=== PATIENT | female | born 1935 | race Caucasian/White ===

== ENCOUNTER → 2019-12-10 10:53 | Outpatient (BNVA) | payer MEDICARE, OTHER, SELFPAY | PROVIDERS: Family Provider Nurse Practitioner Family; PCP Nurse Practitioner Family; Visit Provider Specialist | DX: G31.84 Mild cognitive impairment of uncertain or unknown etiology (principal); F41.8 Other specified anxiety disorders; F42.9 Obsessive-compulsive disorder, unspecified; R25.1 Tremor, unspecified | CPT/HCPCS: 96116; 99214 ==

== ENCOUNTER → 2020-04-01 13:22 | Outpatient (BNVA) | payer MEDICARE, OTHER, SELFPAY | PROVIDERS: Family Provider Nurse Practitioner Family; PCP Nurse Practitioner Family; Visit Provider Nurse Practitioner | DX: E53.8 Deficiency of other specified B group vitamins (principal); E78.2 Mixed hyperlipidemia; I10 Essential (primary) hypertension | CPT/HCPCS: 80053; 80061; 82607; 84443; 85025 ==

== ENCOUNTER → 2020-05-19 14:18 | Outpatient (BNVA) | payer MEDICARE, OTHER, SELFPAY | PROVIDERS: Family Provider Nurse Practitioner Family; PCP Nurse Practitioner Family; Visit Provider Specialist | DX: G30.9 Alzheimer's disease, unspecified (principal); F02.80 Dementia in other diseases classified elsewhere, unspecified severity, without behavioral disturbance, psychotic disturbance, mood disturbance, and anxiety; G25.0 Essential tremor | CPT/HCPCS: 99213 ==

== ENCOUNTER 2020-06-18 14:10 | Outpatient (CLI) | payer MEDICARE, OTHER, SELFPAY ==
--- NOTE | 2020-06-18 14:23 | MM_ITS ---
WS: [id number] BILATERAL DIGITAL SCREENING MAMMOGRAPHY WITH CAD CLINICAL INFORMATION: SCREENING HISTORY: Screening mammogram. No current complaints. COMPARISON: TECHNIQUE: Bilateral CC and MLO views. FINDINGS: The breasts are composed of heterogeneous fibroglandular density tissue, which can limit the detectio n of small underlying mass lesions. Partially obscured isodense lesion mid depth left breast best see n on the cc view more prominent compared to the prior examinations. This measures 10 mm and recommend spot compression views and ultrasound if persistent. Right breast is unchanged. Dystrophic calcifications. Involuted calcified fibroadenoma. Vascular calcification. MM/[place] [id number] IMPRESSION: BI-RADS: 0-Incomplete: Need additional imaging evaluation FOLLOW UP: Need Additional Imaging
== END 2020-06-18 14:11 | disposition home or self-care (01) ==
LOC: RADSHAW 14:23
PROVIDERS: PCP Nurse Practitioner Family; Visit Provider Nurse Practitioner
DX: Z12.31 Encounter for screening mammogram for malignant neoplasm of breast (principal); R92.1 Mammographic calcification found on diagnostic imaging of breast; D24.9 Benign neoplasm of unspecified breast
CPT/HCPCS: 77067

== ENCOUNTER 2020-07-21 09:33 | Outpatient (CLI) | payer MEDICARE, OTHER, SELFPAY ==
--- NOTE | 2020-07-21 09:41 | US_ITS ---
WS: [id number] LEFT DIGITAL MAMMOGRAPHY WITH CAD CLINICAL INFORMATION: abnormal finding left breast COMPARISON: June 18, 2020 TECHNIQUE: 3 views of the left breast were obtained. FINDINGS: Scattered fibroglandular densities of the left breast. Again seen is the 10 mm asymmetric density mid left breast. Ultrasound is pending. Vascular calcification. Dystrophic calcification. ULTRASOUND BREAST LEFT TECHNIQUE: Ultrasound left breast focused area of concern. CLINICAL INFORMATION: abnormal finding left breast COMPARISON: None. FINDINGS: Ultrasound left breast at the 11:00 position 2 cm from the nipple. At the 11:00 position is a solid hypoechoic taller than wide lesion with a suspicious appearance caryn uring 4.7 x 7.3 x 4.4 mm. Recommend further evaluation with ultrasound-guided biopsy. Densely shadowing lesion at the 10:00 position 5 cm from the nipple appears to be partially calcified measuring 5.2 x 3.1 x 6.2 mm. This likely represents involuting fibroadenoma seen on the mammogram. Additional smaller hypoechoic lesions at the 11:00 position 3 cm from nipple likely represent small c ysts and/or dilated ducts. US/US breast LT limited* [id number] IMPRESSION: BI-RADS: 4-Suspicious Finding-Biopsy Should Be Considered FOLLOW UP: US Guided Biopsy Recommended ULTRASOUND GUIDED BIOPSY RECOMMENDED OF THE 11:00 LESION DESCRIBED ABOVE.
== END 2020-07-21 09:34 | disposition home or self-care (01) ==
LOC: RADSHAW 09:37
PROVIDERS: PCP Nurse Practitioner Family; Visit Provider Nurse Practitioner
DX: R92.8 Other abnormal and inconclusive findings on diagnostic imaging of breast (principal); N64.89 Other specified disorders of breast
CPT/HCPCS: 76642; 77065

== ENCOUNTER → 2020-07-23 10:14 | Outpatient (BNVA) | payer MEDICARE, OTHER, SELFPAY | PROVIDERS: PCP Nurse Practitioner Family; Visit Provider Nurse Practitioner Family | DX: I10 Essential (primary) hypertension (principal); R92.8 Other abnormal and inconclusive findings on diagnostic imaging of breast; L70.0 Acne vulgaris; E78.2 Mixed hyperlipidemia; R19.7 Diarrhea, unspecified; G30.9 Alzheimer's disease, unspecified; G31.84 Mild cognitive impairment of uncertain or unknown etiology; E53.8 Deficiency of other specified B group vitamins; N63.20 Unspecified lump in the left breast, unspecified quadrant | CPT/HCPCS: 80053; 80061; 82607; 84443; 85025 ==

== ENCOUNTER 2020-07-24 07:02 | Outpatient (CLI) | payer MEDICARE, OTHER, SELFPAY ==
--- NOTE | 2020-07-24 08:00 | US_ITS ---
WS: [id number] ULTRASOUND-GUIDED LEFT BREAST BIOPSY HISTORY: breast lesion on mammography COMPARISON: 07/21/2020 and 06/18/2020 Procedure, risks and complications are explained to the patient. Medications are reviewed. Consent is obtained. The mass in the LEFT breast is localized with ultrasound. Mass is localized at 11:00, 2 cm from the n ipple. Skin is cleansed with ChloraPrep and anesthetized with 1% buffered lidocaine. Small dermatome is made. Under sterile conditions mass is biopsied with a 14-gauge Achieve needle. Multiple core biop sies are performed. Material placed in formalin and sent to pathology for review. No complications en countered. Breast tissue marker (Bard ultrasound enhanced ribbon): Single. Patient left the radiology suite with no complications. Patient is instructed to return to [facility] or [facility] with any concerns. US/[id number] IMPRESSION: 1. Uncomplicated core needle biopsy LEFT breast biopsy, 11:00, 2 cm from the n ipple. PATHOLOGY: Benign fibroadipose tissue with stromal sclerosis and focal chronic inflammation. No malignancy. RECOMMENDATION: Return to annual screening mammography.
== END 2020-07-24 07:03 | disposition home or self-care (01) ==
PROVIDERS: PCP Nurse Practitioner Family; Visit Provider Nurse Practitioner Family
DX: R92.8 Other abnormal and inconclusive findings on diagnostic imaging of breast (principal); N64.89 Other specified disorders of breast
CPT/HCPCS: 19083; 88305

== ENCOUNTER → 2021-04-28 10:18 | Outpatient (BNVA) | payer MEDICARE, OTHER, SELFPAY | PROVIDERS: PCP Nurse Practitioner Family; Visit Provider Nurse Practitioner | DX: I10 Essential (primary) hypertension (principal); E55.9 Vitamin D deficiency, unspecified; Z78.0 Asymptomatic menopausal state; Z74.09 Other reduced mobility; G60.8 Other hereditary and idiopathic neuropathies; E78.2 Mixed hyperlipidemia; G31.84 Mild cognitive impairment of uncertain or unknown etiology; G25.0 Essential tremor | CPT/HCPCS: 80053; 80061; 82306; 82607; 84443; 85025 ==

== ENCOUNTER → 2021-05-18 12:38 | Outpatient (BNVA) | payer MEDICARE, OTHER, SELFPAY | PROVIDERS: PCP Nurse Practitioner Family; Visit Provider Specialist | DX: G30.9 Alzheimer's disease, unspecified (principal); F02.80 Dementia in other diseases classified elsewhere, unspecified severity, without behavioral disturbance, psychotic disturbance, mood disturbance, and anxiety; G25.0 Essential tremor | CPT/HCPCS: 99213 ==

== ENCOUNTER → 2021-09-01 15:41 | Outpatient (BNVA) | payer MEDICARE, SELFPAY | PROVIDERS: PCP Nurse Practitioner Family; Visit Provider Nurse Practitioner | DX: G31.84 Mild cognitive impairment of uncertain or unknown etiology (principal); I10 Essential (primary) hypertension; E55.9 Vitamin D deficiency, unspecified | CPT/HCPCS: 80053; 80061; 82306; 82607; 84443; 85025 ==

== ENCOUNTER → 2021-09-03 09:48 | Outpatient (BNVA) | payer MEDICARE, SELFPAY | PROVIDERS: PCP Nurse Practitioner Family; Visit Provider Nurse Practitioner | DX: R73.9 Hyperglycemia, unspecified (principal) | CPT/HCPCS: 83036 ==

== ENCOUNTER → 2022-02-18 14:56 | Outpatient (BNVA) | payer MEDICARE, SELFPAY | PROVIDERS: PCP Nurse Practitioner Family; Visit Provider Nurse Practitioner | DX: R73.9 Hyperglycemia, unspecified (principal); E78.2 Mixed hyperlipidemia; I10 Essential (primary) hypertension; R39.11 Hesitancy of micturition; G25.0 Essential tremor; G60.8 Other hereditary and idiopathic neuropathies | CPT/HCPCS: 80053; 80061; 83036 ==

== ENCOUNTER → 2022-05-17 13:16 | Outpatient (BNVA) | payer MEDICARE, OTHER, SELFPAY | PROVIDERS: PCP Nurse Practitioner Family; Visit Provider Specialist | DX: G30.9 Alzheimer's disease, unspecified (principal); F02.80 Dementia in other diseases classified elsewhere, unspecified severity, without behavioral disturbance, psychotic disturbance, mood disturbance, and anxiety; G25.0 Essential tremor | CPT/HCPCS: 99213; 99214 ==

== ENCOUNTER → 2022-06-01 08:53 | Outpatient (BNVA) | payer MEDICARE, OTHER, SELFPAY | PROVIDERS: PCP Nurse Practitioner Family; Visit Provider Nurse Practitioner | DX: E11.65 Type 2 diabetes mellitus with hyperglycemia (principal) | CPT/HCPCS: 80053; 83036 ==

== ENCOUNTER 2022-09-05 17:46 | Emergency (ER) | payer MEDICARE, OTHER, SELFPAY ==
[2022-09-05 17:54] VITALS: BP 183/67; PULSE 62; O2SAT 96; BMI 28.3
--- NOTE | 2022-09-05 18:02 | XRR_ITS ---
PROCEDURE INFORMATION: Exam: XR Right Hip Exam date and time: 09/05/2022 6:16 PM Age: 87 years old Clinical indication: Injury or trauma; Fall; Blunt trauma (contusions or hematomas); Right; Hip TECHNIQUE: Imaging protocol: Radiologic exam of the Right hip. Views: 1 view hip with pelvis when performed. COMPARISON: No relevant prior studies available. FINDINGS: Bones/joints: There are small marginal osteophytes across the right hip joint. Mild narrowing of the right hip joint space. Soft tissues: Unremarkable. XR/XR hip RT 2-3V wo/w pel* [id number] IMPRESSION: No evidence for acute fracture. There are degenerative changes across the right hip joint.
--- NOTE | 2022-09-05 18:05 | ED_ITS ---
HPI - Fall General: Chief Complaint: Fall Stated Complaint: fall/ back pain Time Seen by Provider: 09/05/22 18:02 Source: patient and EMS Mode of arrival: EMS Limitations: no limitations History of Present Illness: 87-year-old female states that she got up out of bed and tripped and fell landed on her right side. States she has right hip pain she rates a 2 out of 10 currently states she is able to move her legs has no obvious deformity she has not tried to ambulate again. She denies hitting her head or any other injuries. Associated symptoms-after fall: Denies abdominal pain, chest pain or headache(s) Review of Systems Const: Denies: fever(s), chills, body aches or change in appetite Eyes: Denies: blurry vision or eye discomfort ENMT: Denies: throat pain or dental pain Card: Denies: chest pain Resp: Denies: dyspnea GI: Denies: abdominal pain, nausea, vomiting or diarrhea : Denies: dysuria Musc: Reports: extremity pain Skin/Breast: Denies: rash Neuro: Denies: headache(s) Psych: Denies: depression Josué/Lymph: Denies: easy bruising All/Imm: Denies: urticaria PFSH ED PFSH: Medical History Essential hypertension Mixed hyperlipidemia Other specified idiopathic peripheral neuropathy Urinary hesitancy Surgical History H/O breast biopsy H/O colonoscopy yrs ago Family History Father CAD (coronary artery disease) Sister Cancer colon Brother Cancer lung Denies family history of Anesthesia complication Bleeding disorder Social History Smoking and tobacco status: never smoked Second hand smoke exposure: No Smoking risk assessment/counseling performed?: No Alcohol intake: never Desire information about alcohol rehabilitation?: No Counseling given: No Desire information about substance/drug rehabilitation?: No Counseling given: No Adopted: No Caregiver/support person: No Lives independently: Yes Household members: spouse and children Housing: House Marital status: service: No Current occupational status: retired History of recent travel: No Current gender identity: Female Physical Exam Const: COMMON NORMALS: no acute distress, patient oriented x3 and healthy appearing HENMT: COMMON NORMALS: normocephalic and atraumatic HEAD & SCALP: n ormocephalic and atraumatic Eye: COMMON NORMALS: Equal, round and reactive pupils present and EOMs intact bilaterally PUPIL: Yes Equal, round and reactive pupils present Neck/C-Spine: COMMON NORMALS: full ROM and supple Chest: COMMONS NORMALS: normal inspection of the chest and normal palpation of entire chest wall Resp: COMMON NORMALS: normal respiratory effort, No retractions, No use of accessory muscles and clear to auscultation bilaterally AUSCULTATION: clear to auscultation bilaterally Cardio: COMMON NORMALS: regular rate, regular rhythm and No murmurs present (Cardio) RATE: regular rate RHYTHM: regular rhythm GI: COMMON NORMALS: Normal to inspection, nondistended, normoactive bowel sounds present, Soft to palpation, non-tender and no masses PALPATION: Yes Soft to palpation Extremity: NARRATIVE EXTREMITY EXAM: tenderness over right hip no obvious deformity. full rom with minimal pain Neuro: COMMON NORMALS: patient oriented x3, moves all extremities and no focal motor deficits Psych: COMMON NORMALS: mental status grossly normal, Normal thought process present and cooperative THOUGHT PROCESS: Normal thought process present Skin: COMMON NORMALS: no rashes or lesions noted and no wounds GENERAL SKIN EXAM: no rashes or lesions noted Course Vital Signs: Vital signs: Vital Signs Pulse Rate 62 09/05/22 17:54 Blood Pressure 183/67 09/05/22 17:54 Pulse Oximetry 96 09/05/22 17:54 MDM - Fall Medical Decision Making Patient presents here with hip pain likely contusion from a fall she is able ambulate the halls with no pain and feels much improved x-ray showed no fracture she had no head injury or any other injuries from the fall. She is stable for discharge she is to follow-up with her PCP in 2 to 4 days return if worsening she understands agrees to plan. Lab Data Radiology Impressions Hip/Pelvis X-Ray 09/05/22 18:02 IMPRESSION: No evidence for acute fracture. There are degenerative changes across the right hip joint. Discharge Plan Discharge Patient Disposition: Home Clinical Impression: Fall, Contusion of right hip Condition: Stable Prescriptions: New Naprosyn 500 mg tablet 500 mg PO BID PRN (Reason: pain) Qty: 20 0RF No Action naproxen 500 mg tablet 500 mg PO BID ipratropium bromide 21 mcg (0.03 %) spray,non-aerosol 2 spray intranasal BID Rx Instructions: administer into each nostril donepezil 10 mg tablet 10 mg PO DAILY Qty: 90 2RF memantine 10 mg tablet See Rx Instructions .ROUTE .COMPLEX Qty: 180 3RF Dose Instruction: TAKE 1 TABLET TWICE A DAY Rx Instructions: TAKE 1 TABLET TWICE A DAY primidone 50 mg tablet See Rx Instructions .ROUTE .COMPLEX Qty: 360 3RF Dose Instruction: TAKE 2 TABLETS TWICE A DAY Rx Instructions: TAKE 2 TABLETS TWICE A DAY propranolol 80 mg capsule,extended release 24 hr 80 mg PO QDAY Qty: 90 3RF pregabalin [Lyrica] 100 mg capsule 100 mg PO BID Qty: 180 1RF mecobalamin (vitamin B12) 5,000 mcg tablet,disintegrating 5,000 mcg PO DAILY Qty: 90 1RF metformin 500 mg tablet extended release 24 hr 1,000 mg PO DAILY Qty: 180 0RF atorvastatin 40 mg tablet 40 mg PO QDAY Qty: 90 1RF buspirone 10 mg tablet See Rx Instructions .ROUTE .COMPLEX Qty: 90 5RF Dose Instruction: TAKE ONE TABLET BY MOUTH THREE TIMES DAILY Rx Instructions: TAKE ONE TABLET BY MOUTH THREE TIMES DAILY tamsulosin [Flomax] 0.4 mg capsule 0.4 mg PO .at bedtime Qty: 90 0RF lisinopril 20 mg tablet 20 mg PO QDAY Qty: 90 0RF duloxetine 60 mg capsule,delayed release(DR/EC) 60 mg PO BID Qty: 180 0RF Discharge Orders: Discharge ED (Routine); Ordered 09/05/22 Ordered By: Hernan Roy Referrals: Zohreh Preston FNP-C [Primary Care Provider] - Discharge Diet: Advance as tolerated Discharge Activity: Resume usual activity Patient Instructions: Hip Contusion (ED) Coding Level of Care Code ED Manager Of Maintenance for Celina Fwpauly Exam Comprehensive
[2022-09-05] MEDS: HYDROcodone-acetaminophen 5-325 mg Tablet 1 TAB PO (18:19)
[2022-09-05 19:43] VITALS: BP 198/93; PULSE 60; RESP 16; O2SAT 94
== END 2022-09-05 19:44 | disposition home or self-care (01) ==
PROVIDERS: Emergency Provider Emergency Medicine; PCP Nurse Practitioner Family
DX: S70.01XA Contusion of right hip, initial encounter (principal); Z79.84 Long term (current) use of oral hypoglycemic drugs; I10 Essential (primary) hypertension; E78.2 Mixed hyperlipidemia; W01.0XXA Fall on same level from slipping, tripping and stumbling without subsequent striking against object, initial encounter
CPT/HCPCS: 73502; 99283

== ENCOUNTER → 2022-10-20 09:55 | Outpatient (BNVA) | payer MEDICARE, OTHER, SELFPAY | PROVIDERS: PCP Nurse Practitioner Family; Visit Provider Nurse Practitioner | DX: E11.65 Type 2 diabetes mellitus with hyperglycemia (principal); E55.9 Vitamin D deficiency, unspecified | CPT/HCPCS: 80053; 80061; 82306; 82607; 83036; 84443; 85025 ==

== ENCOUNTER → 2023-02-09 11:25 | Outpatient (BNVA) | payer MEDICARE, OTHER, SELFPAY | PROVIDERS: PCP Nurse Practitioner; Visit Provider Nurse Practitioner | DX: E11.65 Type 2 diabetes mellitus with hyperglycemia (principal); E55.9 Vitamin D deficiency, unspecified | CPT/HCPCS: 80053; 80061; 82306; 83036 ==

== ENCOUNTER → 2023-04-13 09:45 | Outpatient (BNVA) | payer MEDICARE, OTHER, SELFPAY | PROVIDERS: PCP Nurse Practitioner; Visit Provider Nurse Practitioner | DX: E11.65 Type 2 diabetes mellitus with hyperglycemia (principal) | CPT/HCPCS: 80048; 81000; 82043; 85025 ==

== ENCOUNTER → 2023-08-03 11:42 | Outpatient (BNVA) | payer MEDICARE, OTHER, SELFPAY | PROVIDERS: PCP Nurse Practitioner; Visit Provider Nurse Practitioner | DX: E78.2 Mixed hyperlipidemia (principal); E55.9 Vitamin D deficiency, unspecified; E11.65 Type 2 diabetes mellitus with hyperglycemia | CPT/HCPCS: 80053; 80061; 82306; 82607; 83036; 84443 ==

== ENCOUNTER → 2023-09-02 10:27 | Outpatient (BNVA) | payer MEDICARE, OTHER, SELFPAY | PROVIDERS: PCP Nurse Practitioner; Visit Provider Nurse Practitioner | DX: E11.65 Type 2 diabetes mellitus with hyperglycemia (principal); N39.0 Urinary tract infection, site not specified; R39.11 Hesitancy of micturition | CPT/HCPCS: 81000; 87077; 87086; 87184 ==

== ENCOUNTER → 2023-11-02 10:58 | Outpatient (BNVA) | payer MEDICARE, OTHER, SELFPAY | PROVIDERS: PCP Nurse Practitioner; Visit Provider Nurse Practitioner | DX: E11.65 Type 2 diabetes mellitus with hyperglycemia (principal); G30.9 Alzheimer's disease, unspecified; F02.80 Dementia in other diseases classified elsewhere, unspecified severity, without behavioral disturbance, psychotic disturbance, mood disturbance, and anxiety; F41.8 Other specified anxiety disorders; E78.2 Mixed hyperlipidemia; G31.84 Mild cognitive impairment of uncertain or unknown etiology; I10 Essential (primary) hypertension; F03.918 Unspecified dementia, unspecified severity, with other behavioral disturbance; G60.8 Other hereditary and idiopathic neuropathies; G25.0 Essential tremor; R39.11 Hesitancy of micturition | CPT/HCPCS: 80053; 80061; 82607; 83036; 83540; 84443; 85025 ==

== ENCOUNTER 2023-12-08 16:45 | Emergency (ER) | payer MEDICARE, OTHER, SELFPAY ==
[2023-12-08 16:52] VITALS: BP 172/100; PULSE 71; RESP 18; TEMP 36.9; O2SAT 93; BMI 26.5
--- NOTE | 2023-12-08 17:00 | CTR_ITS ---
PROCEDURE INFORMATION: Exam: CT Head Without Contrast Exam date and time: 12/08/2023 5:22 PM Age: 88 years old Clinical indication: Injury or trauma; Fall; Blunt trauma (contusions or hematomas) TECHNIQUE: Imaging protocol: Computed tomography of the head without contrast. Radiation optimization: All CT scans at this facility use at least one of these dose optimization techniques: automated exposure control; mA and/or kV adjustment per patient size (includes targeted exams where dose is matched to clinical indication); or iterative reconstruction. COMPARISON: No relevant prior studies available. RADIATION DOSE METRICS: Total DLP (mGy-cm): 1089 FINDINGS: Brain: No hemorrhage. No edema. Moderate diffuse cerebral atrophy and sequela of chronic small vessel ischemic disease. No mass effect. Cerebral ventricles: No ventriculomegaly. Paranasal sinuses: Visualized sinuses are unremarkable. No fluid levels. Mastoid air cells: Visualized mastoid air cells are well aerated. Bones/joints: Unremarkable. No acute fracture. Soft tissues: Unremarkable. CT/CT head wo con* [id number] IMPRESSION: No acute intracranial abnormality.
[2023-12-08 17:10] VITALS: BP 153/87; PULSE 73; RESP 17; O2SAT 91
--- NOTE | 2023-12-08 17:34 | ED_ITS ---
HPI - Fall 2 General: Chief Complaint: Fall Stated Complaint: fall from standing Time Seen by Provider: 12/08/23 16:53 Source: patient Mode of arrival: EMS History of Present Illness: 88-year-old female with a history of Alz heimer's dementia presents to the emergency room with complaints of fall. Patient has frequent falls at home fell today from standing. No loss of consciousness. Her daughter cavities remain caregiver is concerned about her possibly having a bladder infection today. This time seen she is at her normal baseline. MD complaint: fall Onset (ago): minute(s) Fall from: standing Fall witnessed: yes, by family Place fall occurred: home Loss of consciousness: None Prolonged down time: no Symptoms prior to fall: none Context: tripped/slipped Associated symptoms-after fall: Denies abdominal pain, chest pain or neck pain Review of Systems 2 Const: Denies: fever(s) or chills Card: Denies: chest pain Resp: Denies: dyspnea GI: Denies: abdominal pain : Denies: dysuria, urinary frequency or urinary urgency Musc: Denies: neck pain or back pain Skin/Breast: Denies: rash PFSH ED 2 PFSH: Medical History Urinary hesitancy Essential hypertension Mixed hyperlipidemia Other specified idiopathic peripheral neuropathy Surgical History H/O colonoscopy yrs ago H/O breast biopsy Family History Father CAD (coronary artery disease) Sister Cancer colon Brother Cancer lung Denies family history of Anesthesia complication Bleeding disorder Social History Smoking and tobacco/nicotine status: never used tobacco/nicotine Second hand smoke exposure: No Alcohol intake: never Substance/Drug Use: unknown Adopted: No Caregiver/support person: No Lives independently: Yes Household members: children Housing: House Marital status: / service: No Current occupational status: retired Do you think of yourself as: Straight/Heterosexual Current gender identity: Female Physical Exam 2 Const: COMMON NORMALS: no acute distress GENERAL APPEARANCE: cooperative and comfortable ORIENTATION/CONSCIOUSNESS: Yes awake HENMT: COMMON NORMALS: normocephalic, atraumatic and hearing grossly normal bilaterally HEAD & SCALP: normocephalic and atraumatic Resp: COMMON NORMALS: normal respiratory effort, No retractions, No use of accessory muscles and clear to auscultation bilaterally AUSCULTATION: clear to auscultation bilaterally Cardio: COMMON NORMALS: regular rate, regular rhythm and No murmurs present (Cardio) RATE: regular rate RHYTHM: regular rhythm GI: COMMON NORMALS: Soft to palpation and No hepatosplenomegaly present A USCULTATION: Yes normoactive bowel sounds PALPATION: Yes Soft to palpation, No Tenderness to palpation present (GI), No Guarding due to palpation present (GI) and Yes No hepatosplenomegaly present Extremity: COMMON NORMALS: normal to inspection, capillary refill normal, no clubbing, cyanosis or edema, no calf tenderness and no pedal edema Skin: COMMON NORMALS: no rashes or lesions noted GENERAL SKIN EXAM: no rashes or lesions noted Course 2 Vital Signs: Vital signs: Vital Signs Temperature 98.4 F 12/08/23 16:52 Pulse Rate 68 12/08/23 19:36 Respiratory Rate 17 12/08/23 17:10 Blood Pressure 133/60 12/08/23 19:36 Pulse Oximetry 100 12/08/23 19:36 Oxygen Delivery Me thod Room Air 12/08/23 17:10 MDM - Fall Medical Decision Making Nasal bone fracture no significant deformity externally minimal displacement on plain film x-ray. There is a 1 cm laceration along the medial supraorbital ridge with no step-offs or deformity. This was Steri-Stripped with tincture of benzoin with good approximation of skin edges. Wound care instructions given. Otherwise labs and imaging do not show significant abnormality. Creatinine is at 1.8 which is approximately her normal baseline. Discussion with the caregiver present with the patient in the emergency room and encouraged talking to her primary care doctor about the possibility of home health for extra assistance at home Medical Records I reviewed the patient's medical records. Lab Data I reviewed the patient's lab results. 12/08/23 17:40 12/08/23 17:[address] 12/08/23 17:00 IMPRESSION: No acute intracranial abnormality. Nasal Bones X-Ray 12/08/23 17:41 IMPRESSION: Nasal fracture. Laboratory Results WBC 7.84 10^3/uL (3.29-11.43) 12/08/23 17:40 RBC 3.79 10^6/uL (3.85-5.65) L 12/08/23 17:40 Hgb 11.70 g/dL (11.27-16.99) 12/08/23 17:40 Hct 37.2 % (36-47) 12/08/23 17:40 MCV 98.2 fl (85-98) H 12/08/23 17:40 MCH 30.9 pg (27-33) 12/08/23 17:40 MCHC 31.5 g/dL (30-55) 12/08/23 17:40 RDW 13.2 % (12.1-15.1) 12/08/23 17:40 Plt Count 178 10^3/cmm (157-399) 12/08/23 17:40 MPV 10.6 fL (7.4-10.4) H 12/08/23 17:40 Neut % (Auto) 67.1 % 12/08/23 17:40 Lymph % (Auto) 21.9 % 12/08/23 17:40 [place] % (Auto) 6.4 % 12/08/23 17:40 Eos % (Auto) 3.7 % 12/08/23 17:40 Baso % (Auto) 0.4 % 12/08/23 17:40 Neut # (Auto) 5.26 10^3/uL (1.8-7.7) 12/08/23 17:40 Lymph # (Auto) 1.7 10^3/uL (0.8-4.8) 12/08/23 17:40 [place] # (Auto) 0.5 10^3/uL (0.2-0.9) 12/08/23 17:40 Eos # (Auto) 0.3 10^3/uL (0.0-0.8) 12/08/23 17:40 Baso # (Auto) 0.0 10^3/uL (0.0-0.1) 12/08/23 17:40 Nucleated RBC % (auto) 0 % 12/08/23 17:40 Nucleated RBCs # 0.0 /100WBC 12/08/23 17:40 Sodium 142 mmol/L (136-145) 12/08/23 17:40 Potassium 4.3 mmol/L (3.5-5.1) 12/08/23 17:40 Chloride 106 mmol/L (98-107) 12/08/23 17:40 Carbon Dioxide 26 mmol/L (22-29) 12/08/23 17:40 Anion Gap 14.3 (5-19) 12/08/23 17:40 BUN 28 mg/dL (8-23) H 12/08/23 17:40 Creatinine 1.8 mg/dL (0.5-0.9) H 12/08/23 17:40 GFR Calculation Not Reportable 12/08/23 17:40 Glucose 107 mg/dL (65-115) 12/08/23 17:40 Calculated Osmolality 300 mOsm/kg (285-295) H 12/08/23 17:40 Calcium 8.8 mg/dL (8.5-10.5) 12/08/23 17:40 Total Bilirubin 0.2 mg/dL (0.15-1.2) 12/08/23 17:40 AST 12 U/L (0-32) 12/08/23 17:40 ALT 9 U/L (0-33) 12/08/23 17:40 Alkaline Phosphatase 164 U/L (35-105) H 12/08/23 17:40 Total Protein 6.6 g/dL (6.6-8.7) 12/08/23 17:40 Albumin 3.6 g/dL (3.5-5.2) 12/08/23 17:40 Globulin 3.0 g/dL (1.3-4.6) 12/08/23 17:40 Urine Color Yellow (Yellow) 12/08/23 18: Urine Appearance Cloudy (CLEAR) A 12/08/23 18: Urine pH 5 (5-7) 12/08/23 18: Ur Specific [place] 1.020 (1.005-1.030) 12/08/23 18: Urine Protein Neg (Negative) 12/08/23 18: Urine Glucose (UA) Norm (Normal) 12/08/23 18: Urine Ketones Negative (Negative) 12/08/23 18: Urine Blood Neg (Negative) 12/08/23 18: Urine Nitrate Positive (Negative) H 12/08/23 18:27 Urine Bilirubin Neg (Negative) 12/08/23 18:27 Urine Urobilinogen Norm mg/dL (Negative) 12/08/23 18:27 Ur Leukocyte Esterase Trace (Negative) H 12/08/23 18:27 Urine RBC 5-10 /hpf (0-2) H 12/08/23 18:27 Urine WBC 80-100 /hpf (0-5) H 12/08/23 18:27 Ur Squamous Epith Cells 5-10 /hpf (0-5) H 12/08/23 18:27 Ur Transition Epith Cell 0-4 /hpf 12/08/23 18:27 Amorphous Sediment Not Reportable 12/08/23 18: Urine Bacteria 4+ /hpf (NONE) H 12/08/23 18: Urine Mucus None /hpf 12/08/23 18: All radiology interpretation(s) finalized by discharge Discharge Plan Discharge Patient Disposition: Home Clinical Impression: Fall, Facial laceration, Mild cognitive impairment with memory loss, Cystitis Condition: Stable Prescriptions: New Macrobid 100 mg capsule 100 mg PO BID 7 Days Qty: 14 0RF Rx Instructions: must administer with a meal/food No Action ipratropium bromide 21 mcg (0.03 %) spray,non-aerosol 2 spray intranasal BID Rx Instructions: administer into each nostril buspirone 10 mg tablet 10 mg PO TID Qty: 270 1RF atorvastatin 40 mg tablet 40 mg PO QDAY Qty: 90 1RF donepezil 10 mg tablet 10 mg PO .in evening Qty: 90 1RF lisinopril 20 mg tablet 20 mg PO QDAY Qty: 90 1RF memantine 10 mg tablet 10 mg PO BID Qty: 180 1RF metformin 500 mg tablet extended release 24 hr 1,000 mg PO DAILY Qty: 180 1RF mirtazapine [Remeron] 30 mg tablet 30 mg PO .at evening meal Qty: 90 1RF pregabalin [Lyrica] 100 mg capsule 100 mg PO BID Qty: 60 5RF primidone 50 mg tablet 100 mg PO BID Qty: 360 1RF propranolol 80 mg capsule,extended release 24 hr 80 mg PO QDAY Qty: 90 1RF tamsulosin [Flomax] 0.4 mg capsule 0.4 mg PO .at bedtime Qty: 90 1RF Discharge Orders: Discharge ED (Routine); Ordered 12/08/23 Ordered By: Hay Brown Referrals: Sabrina Almeida, WILLOW ANALYST-C [Primary Care Provider] - Discharge Activity: Increase activity as tolerated Patient Instructions: Opioid Safety, Pain Management Activity Restrictions/Additional Instructions: Thank you for choosing [facility] for your healthcare needs today. Please realize this is an emergency room and that we are providing you with a medical screening exam and this may not be complete and all inclusive of all the testing and or work up that you may need to determine your ailment or severity of your illness. It is very important that you follow up as instructed or that you return to the Emergency Department should you have concerns or if your condition changes or worsens in any way. Coding Level of Care Code ED Dry Cell Sealer for Celina Cannon
--- NOTE | 2023-12-08 17:41 | XRR_ITS ---
PROCEDURE INFORMATION: Exam: XR Nasal Bones Exam date and time: 12/08/2023 5:56 PM Age: 88 years old Clinical indication: Nose pain; Patient HX: Nose deformity after fal TECHNIQUE: Imaging protocol: XR of the nasal bones. Views: Minimum of 3 views COMPARISON: CT head wo con* [id number] 12/08/2023 5:22 PM FINDINGS: Sinuses: Well aerated. No opacification. Bones/joints: Nasal fracture. Soft tissues: Unremarkable. XR/XR nasal bones min 3V [id number] IMPRESSION: Nasal fracture.
[2023-12-08 17:48] LABS: Basophils % 0.4 %; Eosinophils # 0.3 10^3/uL (0.0-0.8); Eosinophils % 3.7 %; Hematocrit 37.2 % (36-47); Lymphocytes # 1.7 10^3/uL (0.8-4.8); Lymphocytes % 21.9 %; Mean Corpuscular HGB Conc 31.5 g/dL (30-55); Mean Corpuscular Hemoglobin 30.9 pg (27-33); Mean Corpuscular Volume 98.2 fl (85-98); Mean Platelet Volume 10.6 fL (7.4-10.4); Monocytes # 0.5 10^3/uL (0.2-0.9); Monocytes % 6.4 %; Neutrophils # 5.26 10^3/uL (1.8-7.7); Neutrophils % 67.1 %; Nucleated Red Blood Cells % 0 %; Platelet Count 178 10^3/cmm (157-399); Red Blood Count 3.79 10^6/uL (3.85-5.65); Red Cell Distribution Width 13.2 % (12.1-15.1); White Blood Count 7.84 10^3/uL (3.29-11.43)
[2023-12-08 18:13] LABS: Alanine Aminotransferase 9 U/L (0-33); Albumin Level 3.6 g/dL (3.5-5.2); Alkaline Phosphatase 164 U/L (35-105); Anion Gap 14.3 (5-19); Aspartate Amino Transferase 12 U/L (0-32); Blood Urea Nitrogen 28 mg/dL (8-23); Calcium 8.8 mg/dL (8.5-10.5); Carbon Dioxide 26 mmol/L (22-29); Chloride 106 mmol/L (98-107); Glucose 107 mg/dL (65-115); Osmolality Calculated 300 mOsm/kg (285-295); Potassium 4.3 mmol/L (3.5-5.1); Sodium 142 mmol/L (136-145); Total Bilirubin 0.2 mg/dL (0.15-1.2); Total Protein 6.6 g/dL (6.6-8.7)
[2023-12-08 19:05] LABS: Add Urine Microscopic? YES; Bilirubin Urine Neg (Negative); Blood Urine Neg (Negative); Glucose Urine UA Norm (Normal); Ketones Urine Negative (Negative); Leukocyte Esterase Urine Trace (Negative); Nitrate Urine Positive (Negative); Protein Urine Neg (Negative); Urine Appearance Cloudy (CLEAR); Urine Color Yellow (Yellow); Urobilinogen Urine Norm (Negative); pH Urine 5 (5-7)
[2023-12-08 19:17] LABS: Add Urine Culture? Yes; Bacteria Urine 4+ /hpf; Transitional Epi Cells Urine 0-4 /hpf; WBC Urine 80-100 /hpf (0-5)
[2023-12-08 19:29] VITALS: BP 133/60; PULSE 68; O2SAT 100
[2023-12-08 19:36] VITALS: BP 133/60; PULSE 68; O2SAT 100
== END 2023-12-08 19:37 | disposition home or self-care (01) ==
PROVIDERS: Emergency Provider Family Medicine; PCP Nurse Practitioner
DX: N30.90 Cystitis, unspecified without hematuria (principal); G31.84 Mild cognitive impairment of uncertain or unknown etiology; S01.81XA Laceration without foreign body of other part of head, initial encounter; I10 Essential (primary) hypertension; E78.2 Mixed hyperlipidemia; G30.9 Alzheimer's disease, unspecified; F02.80 Dementia in other diseases classified elsewhere, unspecified severity, without behavioral disturbance, psychotic disturbance, mood disturbance, and anxiety; W18.30XA Fall on same level, unspecified, initial encounter; Z79.84 Long term (current) use of oral hypoglycemic drugs
CPT/HCPCS: 36415; 70160; 70450; 80053; 81001; 85025; 87077; 87086; 87186; 99284

== ENCOUNTER 2024-01-09 03:42 | Outpatient (CLI) | payer MEDICARE, OTHER, SELFPAY ==
[2024-01-09] VITALS (9 sets, daily range): BP systolic 101–127; BP diastolic 50–64; PULSE 69–93; RESP 14–20; TEMP 35.7–36.7; O2SAT 91–100; BMI 30.1; BMI 25.2; BMI 25.0
--- NOTE | 2024-01-09 03:48 | CTR_ITS ---
PROCEDURE INFORMATION: Exam: CT Head Without Contrast Exam date and time: 01/09/2024 4:03 AM Age: 88 years old Clinical indication: Stroke-like symptoms; Altered mental status/memory loss; Additional info: AMS TECHNIQUE: Imaging protocol: Computed tomography of the head without contrast. Radiation optimization: All CT scans at this facility use at least one of these dose optimization techniques: automated exposure control; mA and/or kV adjustment per patient size (includes targeted exams where dose is matched to clinical indication); or iterative reconstruction. Other technique: STROKE PROTOCOL was implemented. COMPARISON: CT head wo con* [id number] 12/08/2023 5:22 PM RADIATION DOSE METRICS: Total DLP (mGy-cm): 1184.68 FINDINGS: Brain: There is mild to moderate small vessel disease. There is no evidence of acute parenchymal hemorrhage, extra-axial collection, or acute infarction. There is no mass effect, midline shift, or downward herniation. Cerebral ventricles: No ventriculomegaly. Paranasal sinuses: Visualized sinuses are unremarkable. No fluid levels. Mastoid air cells: There is a new small right mastoid effusion. There is also partial opacification of the right middle ear cavity. Bones/joints: Unremarkable. No acute fracture. Soft tissues: Unremarkable. CT/CT head wo con* [id number] IMPRESSION: [id number] small vessel disease. No evidence of acute intracranial process. ASSESSMENT: ASPECTS ([place] Stroke Program Early CT Score) is 10.
--- NOTE | 2024-01-09 03:48 | XRR_ITS ---
PROCEDURE INFORMATION: Exam: XR Chest Exam date and time: 01/09/2024 3:51 AM Age: 88 years old Clinical indication: Other: AMS; Prior surgery; Surgery date: 6+ months; Surgery type: Breast biopsy; Patient HX: Patient found unresponsive on toilet at home. Patient bradycardic, hypothermic, hypoxic, and responsive only to painful stimulus. TECHNIQUE: Imaging protocol: Radiologic exam of the chest. Views: 1 view. COMPARISON: No relevant prior studies available. FINDINGS: Lungs: Unremarkable. No consolidation. Pleural spaces: Unremarkable. No pleural effusion. No pneumothorax. Heart/Mediastinum: Unremarkable. No cardiomegaly. Bones/joints: Unremarkable. XR/XR chest 1V portable [id number] IMPRESSION: No acute findings.
--- NOTE | 2024-01-09 03:50 | W.ED.GENADLT ---
HPI - General Adult General: Chief complaint: Altered Mental Status Stated complaint: UNRESPONSIVE Time Seen by Provider: 01/09/24 03:47 Source: EMS Mode of arrival: EMS Limitations: altered mental status History of Present Illness: 88-year-old female is multiple medical issues patient was found unresponsive in the bathroom by family tonight per EMS are unsure when her last known normal was. When EMS arrived she was hypotensive along with bradycardic into the 30s to give her 2 doses of atropine heart rates now in the 80s her blood pressure is 120/57. Patient here is not answering questions but will follow verbal commands. Review of Systems General: Reports: ROS unobtainable due to mental status PFSH ED PFSH: Medical History Urinary hesitancy Essential hypertension Mixed hyperlipidemia Other specified idiopathic peripheral neuropathy Surgical History H/O colonoscopy yrs ago H/O breast biopsy Family History Father CAD (coronary artery disease) Sister Cancer colon Brother Cancer lung Denies family history of Anesthesia complication Bleeding disorder Social History Smoking and tobacco/nicotine status: never used tobacco/nicotine Second hand smoke exposure: No Alcohol intake: never Substance/Drug Use: unknown Adopted: No Caregiver/support person: No Lives independently: Yes Household members: children Housing: House Marital status: / service: No Current occupational status: retired Do you think of yourself as: Straight/Heterosexual Current gender identity: Female Physical Exam Const: COMMON NORMALS: negative for patient oriented x3 GENERAL APPEARANCE: ill appearing HENMT: COMMON NORMALS: normocephalic and atraumatic HEAD & SCALP: normocephalic and atraumatic Eye: COMMON NORMALS: conjunctivae normal CONJUNCTIVA: Yes conjunctivae normal Neck/C-Spine: COMMON NORMALS: full ROM and supple Chest: COMMONS NORMALS: normal inspection of the chest Resp: COMMON NORMALS: normal respiratory effort, No retractions, No use of accessory muscles and clear to auscultation bilaterally AUSCULTATION: clear to auscultation bilaterally Cardio: COMMON NORMALS: regular rhythm and No murmurs present (Cardio) RATE: bradycardic RHYTHM: regular rhythm GI: COMMON NORMALS: Normal to inspection, nondistended, normoactive bowel sounds present, Soft to palpation, non-tender and no masses PALPATION: Yes Soft to palpation Extremity: COMMON NORMALS: normal to inspection and full ROM Neuro: COMMON NORMALS: negative for patient oriented x3 OTHER: Patient has not talking she has global weakness she is able to move her feet bilaterally and squeeze both my hands not really able to lift her arms or legs Psych: COMMON NORMALS: cooperative; negative for mental status grossly normal Skin: COMMON NORMALS: no rashes or lesions noted and no wounds GENERAL SKIN EXAM: no rashes or lesions noted Course Vital Signs: Vital signs: Vital Signs Temperature 96.3 F L 01/09/24 03:46 Pulse Rate 88 01/09/24 04:23 Respiratory Rate 17 01/09/24 04:23 Blood Pressure 103/52 01/09/24 04:23 Pulse Oximetry 97 01/09/24 04:23 Oxygen Delivery Me thod Room Air 01/09/24 04:23 MDM - General Adult Medical Decision Making Patient presented here with bradycardia she has severe dementia and has been found down in the bathroom family is here currently had a long discussion with them they state they have been trying to set her up for hospice and had a difficult time doing it. I asked them if they wanted her to be admitted and placed on hospice with no further treatments here. That is what family states they want I spoke to hospitalist Dr. Regalado will put outpatient in a bed and have case management working for to get hospice set up Medical Records I reviewed the patient's medical records. Lab Data I reviewed the patient's lab results. 01/09/24 03:50 01/09/24 03:50 Radiology Impressions Chest X-Ray 01/09/24 03:48 IMPRESSION: No acute findings. Head CT 01/09/24 03:48 IMPRESSION: Iimq-ry-zogvdjzk small vessel disease. No evidence of acute intracranial process. ASSESSMENT: ASPECTS ([place] Stroke Program Early CT Score) is 10. ADDENDUM: 01/09/24 0424 The impression should also include new small right mastoid/middle ear cavity effusion. Laboratory Results WBC 10.45 10^3/uL (3.29-11.43) 01/09/24 03:50 RBC 3.81 10^6/uL (3.85-5.65) L 01/09/24 03:50 Hgb 11.80 g/dL (11.27-16.99) 01/09/24 03:50 Hct 37.9 % (36-47) 01/09/24 03:50 MCV 99.5 fl (85-98) H 01/09/24 03:50 MCH 31.0 pg (27-33) 01/09/24 03:50 MCHC 31.1 g/dL (30-55) 01/09/24 03:50 RDW 13.9 % (12.1-15.1) 01/09/24 03:50 Plt Count 205 10^3/cmm (157-399) 01/09/24 03:50 MPV 11.8 fL (7.4-10.4) H 01/09/24 03:50 Neut % (Auto) 77.1 % 01/09/24 03:50 Lymph % (Auto) 16.5 % 01/09/24 03:50 [place] % (Auto) 4.5 % 01/09/24 03:50 Eos % (Auto) 1.0 % 01/09/24 03:50 Baso % (Auto) 0.3 % 01/09/24 03:50 Neut # (Auto) 8.07 10^3/uL (1.8-7.7) H 01/09/24 03:50 Lymph # (Auto) 1.7 10^3/uL (0.8-4.8) 01/09/24 03:50 [place] # (Auto) 0.5 10^3/uL (0.2-0.9) 01/09/24 03:50 Eos # (Auto) 0.1 10^3/uL (0.0-0.8) 01/09/24 03:50 Baso # (Auto) 0.0 10^3/uL (0.0-0.1) 01/09/24 03:50 Nucleated RBC % (auto) 0 % 01/09/24 03:50 Nucleated RBCs # 0.0 /100WBC 01/09/24 03:50 PT 13.80 SECONDS (12.1-14.9) 01/09/24 03:50 INR 1.03 (0.8-1.2) 01/09/24 03:50 Sodium 139 mmol/L (136-145) 01/09/24 03:50 Potassium 5.1 mmol/L (3.5-5.1) 01/09/24 03:50 Chloride 98 mmol/L (98-107) 01/09/24 03:50 Carbon Dioxide 20 mmol/L (22-29) L 01/09/24 03:50 Anion Gap 26.1 (5-19) H 01/09/24 03:50 BUN 52 mg/dL (8-23) H 01/09/24 03:50 Creatinine 3.5 mg/dL (0.5-0.9) H 01/09/24 03:50 GFR Calculation Not Reportable 01/09/24 03:50 Glucose 140 mg/dL (65-115) H 01/09/24 03:50 Calculated Osmolality 304 mOsm/kg (285-295) H 01/09/24 03:50 Lactic Acid 2.5 mmol/L (0.5-2.2) H 01/09/24 03:50 Calcium 8.9 mg/dL (8.5-10.5) 01/09/24 03:50 Phosphorus 4.5 mg/dL (2.5-4.5) 01/09/24 03:50 Magnesium 2.0 mg/dL (1.7-2.3) 01/09/24 03:50 Total Bilirubin 0.2 mg/dL (0.15-1.2) 01/09/24 03:50 AST 14 U/L (0-32) 01/09/24 03:50 ALT 8 U/L (0-33) 01/09/24 03:50 Alkaline Phosphatase 184 U/L (35-105) H 01/09/24 03:50 Creatine Kinase 64 U/L (26-192) 01/09/24 03:50 Troponin T Baseline 50 ng/L (0-10) H 01/09/24 03:50 NT-Pro-B Natriuret Pep 642 pg/mL (0-450) H 01/09/24 03:50 Total Protein 6.2 g/dL (6.6-8.7) L 01/09/24 03:50 Albumin 3.6 g/dL (3.5-5.2) 01/09/24 03:50 Globulin 2.6 g/dL (1.3-4.6) 01/09/24 03:50 Lipase 48 U/L (13-60) 01/09/24 03:50 TSH 2.00 uIU/mL (0.27-4.20) 01/09/24 03:50 Urine Color Dark yellow (Yellow) 01/09/24 04:22 Urine Appearance Clear (CLEAR) 01/09/24 04:22 Urine pH 5 (5-7) 01/09/24 04:22 Ur Specific [place] 1.015 (1.005-1.030) 01/09/24 04:22 Urine Protein Neg (Negative) 01/09/24 04:22 Urine Glucose (UA) Norm (Normal) 01/09/24 04:22 Urine Ketones 1+ (Negative) H 01/09/24 04:22 Urine Blood Neg (Negative) 01/09/24 04:22 Urine Nitrate Negative (Negative) 01/09/24 04:22 Urine Bilirubin 1+ (Negative) H 01/09/24 04:22 Urine Urobilinogen Norm mg/dL (Negative) 01/09/24 04:22 Ur Leukocyte Esterase Negative (Negative) 01/09/24 04:22 All radiology interpretation(s) finalized by discharge EKG Data EKG 1: I personally reviewed and interpreted this EKG as follows: EKG interpretation date: 01/09/24 EKG interpretation time: 03:54 Interpretation: nsr hr [address] or t wave abnormalities qrs 110 qtc 419 Computer generated interpretation: Chest X-Ray 01/09/24 03:48 IMPRESSION: No acute findings. Head CT 01/09/24 03:48 IMPRESSION: Kylj-nu-adcscnvk small vessel disease. No evidence of acute intracranial process. ASSESSMENT: ASPECTS ([place] Stroke Program Early CT Score) is 10. ADDENDUM: 01/09/24 0424 The impression should also include new small right mastoid/middle ear cavity effusion. Discharge Plan Discharge Patient Disposition: Admitted As Inpatient Clinical Impression: Dementia, Failure to thrive Condition: Stable Prescriptions: No Action buspirone 10 mg tablet 10 mg PO TID Qty: 270 1RF atorvastatin 40 mg tablet 40 mg PO QDAY Qty: 90 1RF lisinopril 20 mg tablet 20 mg PO QDAY Qty: 90 1RF memantine 10 mg tablet 10 mg PO BID Qty: 180 1RF metformin 500 mg tablet extended release 24 hr 1,000 mg PO DAILY Qty: 180 1RF mirtazapine [Remeron] 30 mg tablet 30 mg PO .at evening meal Qty: 90 1RF pregabalin [Lyrica] 100 mg capsule 100 mg PO BID Qty: 60 5RF propranolol 80 mg capsule,extended release 24 hr 80 mg PO QDAY Qty: 90 1RF tamsulosin [Flomax] 0.4 mg capsule 0.4 mg PO .at bedtime Qty: 90 1RF primidone 50 mg tablet 100 mg PO BID donepezil 10 mg tablet 10 mg PO QPM ondansetron 4 mg tablet,disintegrating 4 mg translingual PRN Referrals: Sabrina Almeida, [employer] WORK[employer]-C [Primary Care Provider] - Patient Instructions: Altered Mental Status (ED) Coding Level of Care Code ED Gis Specialist for Celina Cannon
[2024-01-09 04:08] LABS: Basophils % 0.3 %; Eosinophils # 0.1 10^3/uL (0.0-0.8); Hematocrit 37.9 % (36-47); Lymphocytes # 1.7 10^3/uL (0.8-4.8); Lymphocytes % 16.5 %; Mean Corpuscular HGB Conc 31.1 g/dL (30-55); Mean Corpuscular Volume 99.5 fl (85-98); Mean Platelet Volume 11.8 fL (7.4-10.4); Monocytes # 0.5 10^3/uL (0.2-0.9); Monocytes % 4.5 %; Neutrophils # 8.07 10^3/uL (1.8-7.7); Neutrophils % 77.1 %; Nucleated Red Blood Cells % 0 %; Platelet Count 205 10^3/cmm (157-399); Red Blood Count 3.81 10^6/uL (3.85-5.65); Red Cell Distribution Width 13.9 % (12.1-15.1); White Blood Count 10.45 10^3/uL (3.29-11.43)
[2024-01-09] MEDS: sodium chloride 0.9% 1,000 ML 999 ML IV (04:14)
[2024-01-09 04:18] LABS: INR 1.03 (0.8-1.2)
[2024-01-09 04:25] LABS: Lactic Sepsis W/Reflex 2.5 mmol/L (0.5-2.2)
[2024-01-09 04:27] LABS: Add Urine Microscopic? NO; Charge for UA Resulting for Rev
[2024-01-09 04:27] LABS: Troponin(5th) Baseline 50 ng/L (0-10)
[2024-01-09 04:30] LABS: Bilirubin Urine 1+ (Negative); Blood Urine Neg (Negative); Glucose Urine UA Norm (Normal); Ketones Urine 1+ (Negative); Leukocyte Esterase Urine Negative (Negative); Nitrate Urine Negative (Negative); Protein Urine Neg (Negative); Specific Gravity, Urine 1.015 (1.005-1.030); Urine Appearance Clear (CLEAR); Urine Color Dark Yellow (Yellow); Urobilinogen Urine Norm (Negative); pH Urine 5 (5-7)
[2024-01-09 04:38] LABS: Alanine Aminotransferase 8 U/L (0-33); Albumin Level 3.6 g/dL (3.5-5.2); Alkaline Phosphatase 184 U/L (35-105); Anion Gap 26.1 (5-19); Aspartate Amino Transferase 14 U/L (0-32); Blood Urea Nitrogen 52 mg/dL (8-23); Calcium 8.9 mg/dL (8.5-10.5); Carbon Dioxide 20 mmol/L (22-29); Chloride 98 mmol/L (98-107); Creatine Phosphokinase 64 U/L (26-192); Globulin 2.6 g/dL (1.3-4.6); Glucose 140 mg/dL (65-115); Lipase 48 U/L (13-60); NT Pro B Type Natriuretic Pept 642 pg/mL (0-450); Osmolality Calculated 304 mOsm/kg (285-295); Phosphorus 4.5 mg/dL (2.5-4.5); Potassium 5.1 mmol/L (3.5-5.1); Sodium 139 mmol/L (136-145); Total Bilirubin 0.2 mg/dL (0.15-1.2); Total Protein 6.2 g/dL (6.6-8.7)
[2024-01-09 04:47] LABS: Ammonia 24 umol/L (11-51)
[2024-01-09 05:06] LABS: ABG PCO2 43.3 mmHg (35-45); ABG PH Result 7.22 (7.35-7.45); Arterial Blood Gas Hematocrit 32.9 % (37-47); Base Excess ABG -9.4 mmol/L (-2.0-2.0); Blood Gas Allen Test Pos; Blood Gas Sample Type Arterial; HCO3 ABG 17.8 mmol/L (22-26); PO2 ABG 90.4 mmHg (80.0-100.0)
[2024-01-09 05:07] LABS: Blood Gas Operator Identificat ED; Blood Gas Sample Site Radial, left; Oxygen Device ROOM AIR; PO2 FiO2 Ratio Arterial Blood 0
--- NOTE | 2024-01-09 05:27 | PM.HP ---
Providers/Chief Complaint Admitting Physician: Hu Regalado Primary Care Provider: Sabrina Almeida, NELA-Deepali Chief Complaint: UNRESPONSIVE History of Present Illness 88-year-old lady with history of dementia which has been progressing in the recent months, she still recognizes her daughter but not her granddaughter, recently has not been communicating, not eating, was found down at home, in ER lethargic, hypotensive, bradycardic with metabolic abnormalities including ORQUIDEA, metabolic/lactic acidosis. On discussion with her daughter further assessment and treatment deferred due to goals of care. Daughter states they have tried to set up hospice previously but it seems that she did not qualify for hospice at that time as she was able to answer a few questions on her good day. This seems to been a rare occurrence as is, and she has had further decline since then. She states that her mother is which would be to have hospice set up at home so that she may pass away peacefully rather than at the hospital. They had previously had hospice services with her mother's so they are aware of their services. Review of Systems General: Reports: ROS unobtainable due to medical condition and ROS unobtainable due to mental status Medications/Allergies Home Medications Medication Instructions Recorded Confirmed Last Taken Type atorvastatin 40 mg tablet 40 mg PO QDAY #90 tabs 11/02/23 01/09/24 01/08/24 Rx buspirone 10 mg tablet 10 mg PO TID #270 tabs 11/02/23 01/09/24 01/08/24 Rx lisinopril 20 mg tablet 20 mg PO QDAY #90 tabs 11/02/23 01/09/24 01/08/24 Rx memantine 10 mg tablet 10 mg PO BID #180 tabs 11/02/23 01/09/24 01/08/24 Rx metformin 500 mg tablet,extended 1,000 mg (2 x 500 mg) PO DAILY 11/02/23 01/09/24 01/08/24 Rx release 24 hr #180 tabs mirtazapine 30 mg tablet (Remeron) 30 mg PO .at evening meal #90 tabs 11/02/23 01/09/24 01/08/24 Rx pregabalin 100 mg capsule (Lyrica) 100 mg PO BID #60 caps 11/02/23 01/09/24 01/08/24 Rx propranolol 80 mg capsule,24 80 mg PO QDAY #90 caps 11/02/23 01/09/24 01/08/24 Rx hr,extended release tamsulosin 0.4 mg capsule (Flomax) 0.4 mg PO .at bedtime #90 caps 11/02/23 01/09/24 01/08/24 Rx donepezil 10 mg tablet 10 mg PO QPM 01/09/24 01/09/24 01/08/24 History ondansetron 4 mg disintegrating 4 mg translingual PRN 01/09/24 01/09/24 Unknown History tablet primidone 50 mg tablet 100 mg PO BID 01/09/24 01/09/24 01/08/24 History Allergies Allergy/AdvReac Type Severity Reaction Status Date / Time Opioids - Morphine Analogues Allergy unknown Verified 12/14/23 21:09 PFSH Acute PFSH: Medical History Urinary hesitancy Essential hypertension Mixed hyperlipidemia Other specified idiopathic peripheral neuropathy Surgical History H/O colonoscopy yrs ago H/O breast biopsy Family History Father CAD (coronary artery disease) Sister Cancer colon Brother Cancer lung Denies family history of Anesthesia complication Bleeding disorder Social History Smoking and tobacco/nicotine status: never used tobacco/nicotine Second hand smoke exposure: No Alcohol intake: never Substance/Drug Use: unknown Adopted: No Caregiver/support person: No Lives independently: Yes Household members: children Housing: House Marital status: / service: No Current occupational status: retired Do you think of yourself as: Straight/Heterosexual Current gender identity: Female Vitals/I&O/Wt Last Vital Signs Temp 96.3 F L 01/09/24 03:46 Pulse 84 01/09/24 04:56 Resp 20 H 01/09/24 04:56 BP 115/63 01/09/24 04:56 Pulse Ox 100 01/09/24 04:56 O2 Del Method Room Air 01/09/24 04:23 01/08/24 01/08/24 01/09/24 14:59 22:59 06:59 Intake Total 1000 / 1000 Balance 1000 / 1000 Weight last 48 hrs Weight 77.111 kg Physical Exam Narrative: Accompanied by her daughter. Const: EXAM LIMITATIONS: altered mental status ORIENTATION/CONSCIOUSNESS: Yes lethargic HENMT: COMMON NORMALS: oropharynx normal Neck/C-Spine: COMMON NORMALS: no JVD Resp: COMMON NORMALS: normal respiratory effort and clear to auscultation bilaterally AUSCULTATION: clear to auscultation bilaterally Cardio: COMMON NORMALS: no JVD, regular rhythm, S1 normal heart sound present, S2 normal heart sound present and No murmurs present (Cardio) RHYTHM: regular rhythm HEART SOUNDS: S1 normal heart sound present and S2 normal heart sound present GI: COMMON NORMALS: Normal to inspection, nondistended, normoactive bowel sounds present, Soft to palpation and non-tender PALPATION: Yes Soft to palpation Extremity: COMMON NORMALS: no joint enlargement and no pedal edema Neuro: COMMON NORMALS: moves all extremities SENSORIUM/ORIENTATION: Yes alert Skin: COMMON NORMALS: no rashes or lesions noted GENERAL SKIN EXAM: no rashes or lesions noted Urinary Catheter Management: Her: Cath Placed During This Visit: yes Urinary Catheter Date of Insertion: 01/09/24 Urinary Catheter Time of Insertion: 04:23 Data 01/09/24 03:50 01/09/24 03:50 A&P Assessment and plan (1) Failure to thrive: Reviewed vitals, CBC, INR, ABG, CMP, magnesium, phosphorus, CK, TSH, lipase, ammonia, UA, chest x-ray, head CT, EKG, ER note, discussed with ER physician.. Has had declining functional status, progressively worsening dementia. Not communicating, not eating. Had undergone initial workup, received bolus of fluid in the ER, blood pressure improved, heart rate in the 80s. Her daughter reports patient would want to return home with hospice care. Further workup and treatment were deferred. They had attempted to arrange hospice in the past but at that time she had a good day and did not qualify it seems like but has had progressive decline since then. Will request case management consultation for arrangements for hospice care. Her daughter states that they have previously had hospice at the time of patient's 's passing and so they are aware of the services. (2) Declining functional status: As above. (3) Dementia: Worsening dementia. Functional decline. Not communicating. Not eating. Still recognize her daughter, does not recognize her granddaughter. Daughter states that she intermittently says that patient's mother and grandmother are also with them. Continue memantine. Bradycardic, hypotensive on presentation, found down. Discontinue donepezil. (4) ORQUIDEA (acute kidney injury): Received fluid bolus. Blood pressure improved. Bradycardia improved. (5) Hypotension: Improved with fluid bolus. Hold lisinopril, propranolol, Flomax, donepezil, pregabalin. (6) Bradycardia: DC propranolol, donepezil. Plan HTN: Hold antihypertensives, hypotensive on bradycardic. HLD CAD medical problems Attestations Medical Necessity Statement*: Place as outpatient in a bed for arrangements for hospice care at home. Diagnoses Failure to thrive Declining functional status R53.81 Dementia F03.90 ORQUIDEA (acute kidney injury) N17.9 Hypotension I95.9 Bradycardia R00.1
[2024-01-09 05:50] LABS: Reflex Lactate Order REFLEX LACTIC ORDERD
[2024-01-09 06:33] LABS: Troponin 5 2HR 44.44 ng/L (0-10)
[2024-01-09 06:46] LABS: Troponin 5 2HR Delta -5.56 ABS# (0-10)
[2024-01-09 07:20] LABS: Lactic Acid level (Lactate) 1.1 mmol/L (0.5-2.2)
--- NOTE | 2024-01-09 07:34 | PC.NURSE ---
Pt unable to wake or respond to this RN; therefore, unable to take medications. Respirations WNL.
--- NOTE | 2024-01-09 09:48 | ECG_ITS ---
[facility] Test Date: 2024-01-09 Pat Name: Akilah Lawrence Department: Room: Gender: Female Pickle Maker: : 1935 Requested By: Hernan Roy Order Number: [id number] Melissa MD: Ruddy Curtis M.D. Measurements Intervals [place] Rate: 91 P: 73 MN: 189 QRS: -34 QRSD: 110 T: 62 QT: 370 QTc: 457 Interpretive Statements SINUS RHYTHM PATTERN CONSISTENT WITH PULMONARY DISEASE INFERIOR MYOCARDIAL INFARCTION , OF INDETERMINATE AGE [40+ ms Q WAVE AND/OR ST/T ABNORMALITY IN II/aVF] Compared to ECG 07/03/2015 12:52:42 Myocardial infarct finding now present Sinus bradycardia no longer present Electronically Signed On 01-09-2024 9:50:29 GW[employer] SUPPORT by Ruddy Curtis M.D. [email or web address]
[2024-01-09 10:26] LABS: Troponin 5 6HR 42.15 ng/L (0-10)
[2024-01-09] MEDS: ondansetron 2 mg/ML SDV 2 mL 4 MG IVP (12:52)
[2024-01-09] MEDS: morphine 4 mg/mL SDV 1 mL 2 MG IVP (12:52)
[2024-01-10 04:00] VITALS: BP 115/63; PULSE 88; RESP 19; TEMP 36.7; O2SAT 93
[2024-01-10 05:48] VITALS: PULSE 88
[2024-01-10 08:00] VITALS: BP 120/51; PULSE 87; RESP 17; TEMP 37.2; O2SAT 91
--- NOTE | 2024-01-10 10:48 | PM.DCS ---
Discharge Providers Date of Admission: 01/09/24 04:39 Date of Discharge: January 10, 2024 Attending Provider at Admission: Hu Regalado Attending Provider at Discharge: Dianna Cody MD Primary Care Provider: OUSMANE Foss Diagnoses at Discharge Discharge Diagnosis (1) Failure to thrive: Status: Acute (2) Declining functional status: Status: Acute (3) Dementia: Status: Acute (4) ORQUIDEA (acute kidney injury): Status: Acute (5) Hypotension: Status: Acute (6) Bradycardia: Status: Acute Reason for Visit Reason for Visit: UNRESPONSIVE Hospital Course Hospital Course 88-year female with history of dementia, has been progressing lately, she has stopped eating, she is dehydrated, oriented to herself only, not able to reciprocate, she is bradycardic as well, family had decided to pursue hospice care, case manager specialist aware. Will try to arrange hospital bed and bedside commode, on the day of discharge patient is able to give simple answers, when I gave her the juice she was able to hold it and drink to some extent her mentation is fluctuant. long-term prognosis is guarded Physical Exam Narrative: Dehydrated Oriented to self Withdrawn Not reciprocate Able to move her extremities not purposefully Laying supine Currently on room air Urinary Catheter Management: Her: Cath Placed During This Visit: yes Reason for Continuing Indwelling Catheter: Hospice/Comfort/Palliative Care Urinary Catheter Date of Insertion: 01/09/24 Urinary Catheter Time of Insertion: 04:23 Discharge Data Studies Completed and Pending Completed Studies During Hospitalization Category Date Time Status CT head wo con* [id number] Stat Cat Scan 01/09/24 03:48 Completed XR chest 1V portable [id number] Stat Exams 01/09/24 03:48 Completed Pending at discharge Category Date Time Status Blood Culture Stat Lab 01/09/24 06:03 Results Troponin(5th) 6 hour. Timed Lab 01/09/24 09:52 Received Radiology Impressions Chest X-Ray 01/09/24 03:48 IMPRESSION: No acute findings. Head CT 01/09/24 03:48 IMPRESSION: Zgpy-zv-ilndnsvd small vessel disease. No evidence of acute intracranial process. ASSESSMENT: ASPECTS ([place] Stroke Program Early CT Score) is 10. ADDENDUM: 01/09/24 0424 The impression should also include new small right mastoid/middle ear cavity effusion. Laboratory Results WBC 10.45 10^3/uL (3.29-11.43) 01/09/24 03:50 RBC 3.81 10^6/uL (3.85-5.65) L 01/09/24 03:50 Hgb 11.80 g/dL (11.27-16.99) 01/09/24 03:50 Hct 37.9 % (36-47) 01/09/24 03:50 MCV 99.5 fl (85-98) H 01/09/24 03:50 MCH 31.0 pg (27-33) 01/09/24 03:50 MCHC 31.1 g/dL (30-55) 01/09/24 03:50 RDW 13.9 % (12.1-15.1) 01/09/24 03:50 Plt Count 205 10^3/cmm (157-399) 01/09/24 03:50 MPV 11.8 fL (7.4-10.4) H 01/09/24 03:50 Neut % (Auto) 77.1 % 01/09/24 03:50 Lymph % (Auto) 16.5 % 01/09/24 03:50 [place] % (Auto) 4.5 % 01/09/24 03:50 Eos % (Auto) 1.0 % 01/09/24 03:50 Baso % (Auto) 0.3 % 01/09/24 03:50 Neut # (Auto) 8.07 10^3/uL (1.8-7.7) H 01/09/24 03:50 Lymph # (Auto) 1.7 10^3/uL (0.8-4.8) 01/09/24 03:50 [place] # (Auto) 0.5 10^3/uL (0.2-0.9) 01/09/24 03:50 Eos # (Auto) 0.1 10^3/uL (0.0-0.8) 01/09/24 03:50 Baso # (Auto) 0.0 10^3/uL (0.0-0.1) 01/09/24 03:50 Nucleated RBC % (auto) 0 % 01/09/24 03:50 Nucleated RBCs # 0.0 /100WBC 01/09/24 03:50 PT 13.80 SECONDS (12.1-14.9) 01/09/24 03:50 INR 1.03 (0.8-1.2) 01/09/24 03:50 Specimen Type Arterial 01/09/24 04:56 Sample Site Radial, left 01/09/24 04:56 ABG pH 7.22 (7.35-7.45) L 01/09/24 04:56 ABG pCO2 43.3 mmHg (35-45) 01/09/24 04:56 ABG pO2 90.4 mmHg (80.0-100.0) 01/09/24 04:56 ABG PO2/FiO2 Ratio 0 01/09/24 04:56 ABG HCO3 17.8 mmol/L (22-26) L 01/09/24 04:56 ABG Base Excess -9.4 mmol/L (-2.0-2.0) L 01/09/24 04:56 Juan Test Pos 01/09/24 04:56 Hematocrit 32.9 % (37-47) L 01/09/24 04:56 O2 Delivery Device Room air 01/09/24 04:56 FiO2 21.0 % 01/09/24 04:56 Furnace Room Supervisor ID Ed 01/09/24 04:56 Sodium 139 mmol/L (136-145) 01/09/24 03:50 Potassium 5.1 mmol/L (3.5-5.1) 01/09/24 03:50 Chloride 98 mmol/L (98-107) 01/09/24 03:50 Carbon Dioxide 20 mmol/L (22-29) L 01/09/24 03:50 Anion Gap 26.1 (5-19) H 01/09/24 03:50 BUN 52 mg/dL (8-23) H 01/09/24 03:50 Creatinine 3.5 mg/dL (0.5-0.9) H 01/09/24 03:50 GFR Calculation Not Reportable 01/09/24 03:50 Glucose 140 mg/dL (65-115) H 01/09/24 03:50 Calculated Osmolality 304 mOsm/kg (285-295) H 01/09/24 03:50 Lactic Acid 2.5 mmol/L (0.5-2.2) H 01/09/24 03:50 Lactic Acid (Sepsis) 1.1 mmol/L (0.5-2.2) 01/09/24 06:49 Calcium 8.9 mg/dL (8.5-10.5) 01/09/24 03:50 Phosphorus 4.5 mg/dL (2.5-4.5) 01/09/24 03:50 Magnesium 2.0 mg/dL (1.7-2.3) 01/09/24 03:50 Total Bilirubin 0.2 mg/dL (0.15-1.2) 01/09/24 03:50 AST 14 U/L (0-32) 01/09/24 03:50 ALT 8 U/L (0-33) 01/09/24 03:50 Alkaline Phosphatase 184 U/L (35-105) H 01/09/24 03:50 Ammonia 24 umol/L (11-51) 01/09/24 03:50 Creatine Kinase 64 U/L (26-192) 01/09/24 03:50 Troponin T Baseline 50 ng/L (0-10) H 01/09/24 03:50 Troponin T 120 Minute 44.44 ng/L (0-10) H 01/09/24 05:59 Delta Troponin T -5.56 ABS# (0-10) L 01/09/24 05:59 NT-Pro-B Natriuret Pep 642 pg/mL (0-450) H 01/09/24 03:50 Total Protein 6.2 g/dL (6.6-8.7) L 01/09/24 03:50 Albumin 3.6 g/dL (3.5-5.2) 01/09/24 03:50 Globulin 2.6 g/dL (1.3-4.6) 01/09/24 03:50 Lipase 48 U/L (13-60) 01/09/24 03:50 TSH 2.00 uIU/mL (0.27-4.20) 01/09/24 03:50 Urine Color Dark yellow (Yellow) 01/09/24 04:22 Urine Appearance Clear (CLEAR) 01/09/24 04:22 Urine pH 5 (5-7) 01/09/24 04:22 Ur Specific [place] 1.015 (1.005-1.030) 01/09/24 04:22 Urine Protein Neg (Negative) 01/09/24 04:22 Urine Glucose (UA) Norm (Normal) 01/09/24 04:22 Urine Ketones 1+ (Negative) H 01/09/24 04:22 Urine Blood Neg (Negative) 01/09/24 04:22 Urine Nitrate Negative (Negative) 01/09/24 04:22 Urine Bilirubin 1+ (Negative) H 01/09/24 04:22 Urine Urobilinogen Norm mg/dL (Negative) 01/09/24 04:22 Ur Leukocyte Esterase Negative (Negative) 01/09/24 04:22 Vitals Last Vital Signs Temp 97.5 F L 01/09/24 08:00 Pulse 69 01/09/24 08:00 Resp 18 01/09/24 08:00 BP 127/64 01/09/24 08:00 Pulse Ox 98 01/09/24 08:00 O2 Del Method Room Air 01/09/24 05:41 Discharge Plan Discharge Patient Disposition: Hospice - Home Prescriptions: Discontinued buspirone 10 mg tablet 10 mg PO TID Qty: 270 1RF atorvastatin 40 mg tablet 40 mg PO QDAY Qty: 90 1RF lisinopril 20 mg tablet 20 mg PO QDAY Qty: 90 1RF memantine 10 mg tablet 10 mg PO BID Qty: 180 1RF metformin 500 mg tablet extended release 24 hr 1,000 mg PO DAILY Qty: 180 1RF mirtazapine [Remeron] 30 mg tablet 30 mg PO .at evening meal Qty: 90 1RF pregabalin [Lyrica] 100 mg capsule 100 mg PO BID Qty: 60 5RF propranolol 80 mg capsule,extended release 24 hr 80 mg PO QDAY Qty: 90 1RF tamsulosin [Flomax] 0.4 mg capsule 0.4 mg PO .at bedtime Qty: 90 1RF primidone 50 mg tablet 100 mg PO BID donepezil 10 mg tablet 10 mg PO QPM ondansetron 4 mg tablet,disintegrating 4 mg translingual PRN Referrals: Sabrina Almeida, [employer] DUMPER-C [Primary Care Provider] - Patient Instructions: Altered Mental Status (ED) Discharge Attestations Time Spent in Discharge Care*: greater than 30 min Quality Metrics Clinical Quality Measures [ No reported AMI, CVA or VTE this stay] Coding Level of Care Code Acute Code for Chg Fwd Diagnoses Failure to thrive Declining functional status R53.81 Dementia F03.90 ORQUIDEA (acute kidney injury) N17.9 Hypotension I95.9 Bradycardia R00.1
[2024-01-10 11:23] VITALS: RESP 17; O2SAT 91
[2024-01-10] MEDS: morphine 4 mg/mL SDV 1 mL 2 MG IVP (11:23)
[2024-01-10 12:00] VITALS: BP 116/78
--- NOTE | 2024-01-10 12:18 | PC.NURSE ---
Awaiting on hospice company to deliver hospital bed to the home then will call for a PCS ride.
--- NOTE | 2024-01-10 12:41 | PC.NURSE ---
Patient is awake, but disoriented. Has been easily directable. IV found on the bed beside patient. IV restarted by this nurse. Family at bedside.
[2024-01-10 16:00] VITALS: BP 115/68; PULSE 92; RESP 16; TEMP 36.8; O2SAT 91
== END 2024-01-10 18:50 | disposition hospice, home (50) ==
LOC: ER 04:45 → MEDSURG 05:01 → ER 11:17 → MEDSURG 11:17
PROVIDERS: Emergency Medicine; PCP Nurse Practitioner; Visit Provider Internal Medicine
DX: R62.7 Adult failure to thrive (principal); R53.81 Other malaise; F03.90 Unspecified dementia, unspecified severity, without behavioral disturbance, psychotic disturbance, mood disturbance, and anxiety; N17.9 Acute kidney failure, unspecified; I95.9 Hypotension, unspecified; R00.1 Bradycardia, unspecified; E86.0 Dehydration; Z79.84 Long term (current) use of oral hypoglycemic drugs; I10 Essential (primary) hypertension; E78.2 Mixed hyperlipidemia
CPT/HCPCS: 36415; 36600; 51702; 70450; 71045; 80053; 81003; 82140; 82550; 82803; 83605; 83690; 83735; 83880; 84100; 84443; 84484; 85025; 85610; 87040; 93005; J2270; J2405; J7030